=== PATIENT | female | born 1985 | race Caucasian/White ===

== ENCOUNTER 2017-04-02 23:51 | Emergency (ER) | payer MEDICAID, OTHER ==
[~2017-04-02] VITALS: Ht 175.3 cm; Wt 90.9 kg
[~2017-04-02 23:51] MED LIST: DICY20TA10 PO; HYDR1TAB69 PO
[2017-04-02 23:56] VITALS: BP 123/75; PULSE 52; RESP 16; O2SAT 98
--- NOTE | 2017-04-03 00:40 | ED.REPORT ---
HPI-Abd Pain F Under 40 Date of Service Apr 03, 2017 ED Provider: Yg Simon DO Patient is a 32 year old female who presents to the ED complaining of dysuria. Associated symptoms include suprapubic cramping, urinary frequency and urinary urgency. She denies vaginal discharge or bleeding. The patient states that it feels like a bladder infection. Nursing Notes Stated Complaint: ABDOMINAL CRAMPING Chief Complaint: Female Abdominal Pain Nursing Notes Reviewed: Yes Allergies: Coded Allergies: Sulfa (Sulfonamide Antibiotics) (Verified Allergy, Unknown, 04/02/17) Scheduled Dicyclomine-Expunged Drug, Do Not Renew! (Dicyclomine-Expunged Drug, Do Not Renew!) 20 Mg Tablet 20 MG PO qid prn Hydrocod/APAP-Expunged, Do Not Renew! (VICODIN 5/500-Expunged Drug, Do Not Renew ) 1 Each Tablet 1 EACH PO q6h prn General Time Seen by MD: 00:39 Chief Complaint Dysuria Hx Obtained From: Patient Arrived By: Walk-in Sudden in Onset?: Yes Location: : Suprapubic Quality: Cramping Severity: Current: Moderate Recent Healthcare: No recent doctor visit, No recent hospitalization Similar Sx Previous: Yes Past Medical History Past Medical History none reported Smoking History Unknown if Ever Smoker Social History Other Social History: Good social support, Ambulatory Status Independent Review of Systems Constitutional: Denies: Chills, Fever Respiratory: Denies: Non-productive cough, Shortness of breath GI: Reports: Abdominal pain Female: Reports: Dysuria, Urinary frequency, Urinary urgency, Denies: Hematuria, Vaginal bleeding - abnl, Vaginal discharge Complete sys rev & neg: except as marked. Skin: Denies Itching, Denies Rash Physical Exam Initial Vital Signs Vital Signs (First) Date Time Temp Pulse Resp B/P Pulse Ox O2 Delivery O2 Flow Rate FiO2 04/02/17 23:56 36.8 52 16 123/75 98 Room Air Initial VS: Reviewed General/Constitutional: Awake, Alert Respiratory / Chest: Atraumatic, Breath sounds NL, Breath sounds = bilat, No respiratory distress Cardiovascular: Heart rate NL, Regular rhythm, Heart sounds NL Abdomen: Atraumatic, Soft Tenderness/Guarding/Rebound: Positive: Tender suprapubic Back: Atraumatic, Non-tender Head / Eyes: Atraumatic, Normocephalic, PERRL, EOMI Skin: Atraumatic, Color NL, No rash, Warm, Dry Neurologic: Oriented X3, Speech NL, No motor deficits, No sensory deficits Psychiatric: Affect NL, Mood NL Interpretation & Diagnostics Lab Results Interpretation Result Diagram: 04/03/17 0202 04/03/17 0202 Test 04/03/17 00:25 04/03/17 02:02 Urine Color Yellow (YELLOW) Urine Appearance Clear (CLEAR,HAZY) Urine pH 6.0 (5.0-8.0) Urine Specific [place] 1.025 (1.003-1.035) Urine Protein Negativemg/dL (NEG,TRACE) Urine Glucose (UA) Negativemg/dL (NEGATIVE) Urine Ketones Negativemg/dL (NEGATIVE) Urine Occult Blood Negative (NEGATIVE) Urine Nitrite Negative (NEGATIVE) Urine Bilirubin Negative (NEGATIVE) Urine Urobilinogen Normalmg/dL (NORMAL) Urine Leukocyte Esterase Negative (NEGATIVE) Urine RBC 0-2/hpf (0-2) Urine WBC 0-5/hpf (0-5) Urine Epithelial Cells Few/hpf (NONE-MOD) Urine Crystals Oxalic acid crystals (NONE Urine Bacteria None/hpf (NONE-FEW) Urine Hyaline Casts None/lpf (NONE) Urine Granular Casts None seen (NONE SEEN) Urine Waxy Casts None seen (NONE SEEN) Urine Red Blood Cell Casts None seen (NONE SEEN) Urine White Blood Cell Casts None seen (NONE SEEN) Urine Mucus None seen (None Seen) Urine Trichomonas None seen (NONE SEEN) Urine Yeast None (NONE SEEN) Urinalysis Comment None Urine Culture Reflexed Not indicated White Blood Count 10.4th/mm3 (3.8-10.1) Red Blood Count 4.26mil/mm3 (3.90-5.20) Hemoglobin 11.4g/dL (12.0-15.6) Hematocrit 36.2% (35.0-46.0) Mean Corpuscular Volume 85.0fL (81-100) Mean Corpuscular Hemoglobin 26.8pg (27.0-35.0) Mean Corpuscular Hemoglobin Concent 31.5% (32.0-37.0) Red Cell Distribution Width 14.0% (12.3-15.4) Platelet Count 234bil/L (150-400) Neutrophils (%) (Auto) 46.2% (40-74) Lymphocytes (%) (Auto) 42.9% (14-46) Monocytes (%) (Auto) 9.0% (4-12) Eosinophils (%) (Auto) 1.4% (0-5) Basophils (%) (Auto) 0.3% (0-3) Sodium Level 139mEq/L (134-144) Potassium Level 4.3mEq/L (3.5-5.2) Chloride Level 101mEq/L (97-108) Carbon Dioxide Level 25mmol/L (18-29) Blood Urea Nitrogen 13mg/dL (6-20) Creatinine 0.61mg/dL (0.57-1.00) Estimat Glomerular Filtration Rate 161mL/min (>59) Glucose Level 100mg/dL (60-99) Calcium Level 8.9mg/dL (8.5-10.1) Total Bilirubin 0.2mg/dL (0.0-1.2) Aspartate Amino Transf (AST/SGOT) 14U/L (0-50) Alanine Aminotransferase (ALT/SGPT) 13U/L (0-32) Alkaline Phosphatase 47U/L (25-150) Total Protein 6.3g/dL (6.4-8.4) Albumin 3.9g/dL (3.4-5.0) Hold [place] Top Tube Received (Received) CT Abd / Pelvis Interpretation Study type: Abdominal CT no contrast Interpretation / Wet Read by: Interpret - Radiologist (2 mm stone in the left kidney. Otherwise normal CT scan.) Re-Eval/Medical Decision Med Decision/Clinical Course Urinalysis showed no evidence of a UTI, abdomen CT was ordered. Azalia has symptoms that could be consistent with her passing a kidney stone. She has axilla acid crystals in her urine and the CT shows that she does have a stone in her left kidney. The pain was relieved with [place]. She will be discharged home with [place] take home pack. I do not feel that Flomax is indicated at this time to expect she passed the stone. We were going to culture her urine. We have sent off GC chlamydia testing although I have a low pretest probability for this. Recommend close outpatient follow-up with routine opiate warnings given. Re-Evaluation/Progress : Time of Eval: 01:35 Re-Evaluation/Progress Note: Patient is pain free after [place]. Discussed lab results and plan for CT. Counseled Regarding: Diagnosis, Lab results, Need for follow-up, When/why to return to ED Discharge & Departure Primary Impression: Dysuria Additional Impression: Kidney stones, calcium oxalate Disposition: Home Discharge Condition All VS Reviewed: Yes Condition: Stable Patient Instructions: Acute Abdominal Pain (ED), Dysuria (ED), Kidney Stones ( ED) Additional Instructions: I suspect that you have passed a kidney stone. You had a kidney stone in her left kidney and you have the breakdown products of kidney stones in your urine. We are culturing your urine and sending a urine out for specialized testing for infection. This will be available in 72 hours. Set up a follow-up with your primary care physician. If the pain returns you may take 1-2 [place] every 6 hours. Drink plenty of liquids. If the cultures or the GEN probe comes back positive you will need to be on antibiotics so follow-up is essential. Do not drive or drink alcohol or consume acetaminophen while taking the [place]. Do not drive tonight as you received pain medication in the ED. Follow up with your primary care physician next week. Return to the emergency department if you develop any new or concerning symptoms. Referrals: Beni Reinoso MD (PCP) [facility] Attestation Portions of this note were transcribed by Anne Marie Cabrera. I, Dr. Simon personally performed the history, physical exam and medical decision-making; I reviewed and confirmed the accuracy of the information in the transcribed note. Signed by: Kelvin Woodard, 04/03/17 and 0010 copies to: Beni Reinoso MD, Todd P DO Apr 03, 2017 00:39 Karen Cabrera Apr 03, 2017 00:58
[2017-04-03] MEDS ORDERED: HYDROcodone-APAP 5-325 mg Tablet PO ONE (01:00)
[2017-04-03 01:28] LABS: APPEARANCE,URINE CLEAR (CLEAR,HAZY); COLOR,URINE YELLOW (YELLOW); OCCULT BLOOD,URINE NEGATIVE (NEGATIVE); UROBILINOGEN,URINE NORMAL (NORMAL)
[2017-04-03 02:23] LABS: BASOPHILS % (AUTO) 0.3 % (0-3); EOSINOPHILS % (AUTO) 1.4 % (0-5); Mean Corpuscular Hemoglobin 26.8 pg (27.0-35.0); NEUTROPHILS % (AUTO) 46.2 % (40-74); Platelet Count 234 bil/L (150-400)
[2017-04-03] MEDS ORDERED: _HYDROcodone/APAP 5-325 mg Tablet PO PRN (03:55)
--- NOTE | 2017-04-03 09:07 | DRSVH ---
PROCEDURE: CT KUB ([id number]) INDICATIONS: flank and suprapubic pain TECHNIQUE: Noncontrast 5 mm thick sections acquired from the diaphragms to the symphysis. 5 mm thick coronal an d sagittal reformats were then performed. For radiation dose reduction, the following was used: aut omated exposure control, adjustment of mA and/or kV according to patient size. COMPARISON: None. FINDINGS: Image quality: Excellent. Lung bases: Lung bases are clear. Heart size is normal. There is a small hiatal hernia. Urinary system: There is a 2 mm stone in the inferior pole of the left kidney. Both kidneys are norm al in size. No hydronephrosis or perinephric fat stranding. Both ureters appear non-dilated through out their expected courses. Bladder wall thickness is normal; no calcified bladder stones. Other solid organs: Liver and spleen are normal in size. Gallbladder is surgically absent. Pancrea s is normal in contours. No adrenal nodules. Peritoneum and bowel: Unenhanced bowel loops demonstrate normal wall thickness and caliber. No free fluid or air. Nodes and vessels: No retroperitoneal or mesenteric adenopathy by size criteria. Aorta and inferior vena cava are normal in caliber. Abdominal wall: No ventral hernias. Pelvis: No free pelvic fluid. No inguinal hernias or adenopathy. Bones: No suspicious bony lesions. No vertebral body compression fractures. IMPRESSION: 1. A 2 mm stone in the inferior pole of left kidney. No hydronephrosis or hydroureter. 2. Small hiatal hernia. 3. An IUD in place. No significant discrepancy with the night time babysitter radiology preliminary report. Dictated by: Jeremi Batres M.D. on 04/03/2017 at 8:59 Approved by: Jeremi Batres M.D. on 04/03/2017 at 9:05
== END 2017-04-03 04:35 | disposition home or self-care (01) ==
LOC: SED 23:51
DX: N20.0 Calculus of kidney (principal); Z88.2 Allergy status to sulfonamides